=== PATIENT | female | born 1945 | race Caucasian/White ===

== ENCOUNTER 2020-09-10 17:57 | Emergency (ER) | payer MEDICARE, BC ==
--- NOTE | 2020-09-10 18:45 | XRAY Report ---
PROCEDURE: Foot 3 View LT INDICATIONS: Trauma TECHNIQUE: 3 views of the foot were acquired. COMPARISON: None FINDINGS: Bones: No fractures or dislocations. No suspicious bony lesions. Joint space narrowing and periart icular osteophyte formation at the first metatarsophalangeal joint, indicating osteoarthritis. Periar ticular osteophyte formation at the interphalangeal joints of the digits. Soft tissues: No tibiotalar joint effusion. Achilles tendon appears normal. IMPRESSION: Osteoarthritis. No acute fracture. No osseous lesion. If symptoms and/or clinical suspicion for patho logy continue, further assessment with repeat plain films, or advanced imaging (e.g., CT, MRI, or bon e scan) is recommended for further assessment. Reviewed by: Argentina Jessica MD on 09/10/2020 6:44 PM PDT Approved by: Argentina Jessica MD on 09/10/2020 6:44 PM PDT Station ID: [id number]
[2020-09-10 19:11] VITALS: BP 161/78
--- NOTE | 2020-09-10 19:14 | ED Physician Documentation ---
PD HPI LOWER EXT INJURY - Stated complaint Stated Complaint: LEFT TOE INJURY - Chief complaint Chief Complaint: Ext Problem - History obtained from History obtained from: Patient - Additional information Additional information: Patient comes emergency department chief complaint of left fourth toe injury. She states she was walking and hit her toe on the leg of a table. She states the toes seem to be sticking out in the wrong direction, so she was told by her she should come in and get checked out. She states that looks a little better now, though it is a little bit bruised and swollen. No other injuries or complaints Review of Systems Ten Systems: 10 systems reviewed and negative Constitutional: reports: Reviewed and negative Eyes: reports: Reviewed and negative Ears: reports: Reviewed and negative Nose: reports: Reviewed and negative Throat: reports: Reviewed and negative Cardiac: reports: Reviewed and negative Respiratory: reports: Reviewed and negative GI: reports: Reviewed and negative : reports: Reviewed and negative Skin: reports: Reviewed and negative Musculoskeletal: reports: Extremity pain, Extremity swelling Neurologic: reports: Reviewed and negative Psychiatric: reports: Reviewed and negative Endocrine: reports: Reviewed and negative Immunocompromised: reports: Reviewed and negative PD PAST MEDICAL HISTORY - Allergies Allergies/Adverse Reactions: Allergies Allergy/AdvReac Type Severity Reaction Status Date / Time amoxicillin Allergy Hives Verified 09/10/20 18:06 Sulfa (Sulfonamide Allergy Hives Verified 09/10/20 18:06 Antibiotics) PD ED PE NORMAL - Vitals Vital signs reviewed: Yes - General General: Alert and oriented X 3, No acute distress - HEENT HEENT: Atraumatic, PERRL, EOMI, Moist mucous membranes - Neck Neck: Supple, no meningeal sign - Cardiac Cardiac: Strong equal pulses - Respiratory Respiratory: No respiratory distress - Derm Derm: Warm and dry, No rash, Other (Contusion and mild edema of left fourth toe. No skin breakage) - Extremities Extremities: No deformity, Other (Tenderness palpation, mild, of left fourth toe. Mild edema. No deformity.) - Neuro Neuro: Alert and oriented X 3 - Psych Psych: Normal mood, Normal affect Results - Vitals Vitals: Vital Signs - 24 hr 09/10/20 09/10/20 18:06 19:11 Temperature 36.5 C 36.8 C Heart Rate 79 90 Respiratory 16 19 Rate Blood Pressure 170/80 H 161/78 H O2 Saturation 98 96 Oxygen O2 Source Room air - Rads (name of study) L foot XR Radiology: Final report received, EMP read indepedently, See rad report (neg) PD MEDICAL DECISION MAKING - ED course Complexity details: reviewed results, re-evaluated patient, considered differential, d/w patient ED course: Patient was worked up with x-ray of her left foot, which was unremarkable. I discussed with patient that she has not broken her toe. We have discussed symptomatic management at home, and the usual indications for follow-up and return. Departure - Departure Disposition: 01 Home, Self Care Clinical Impression: Toe contusion Qualifiers: Encounter type: initial encounter Toe: lesser toe Damage to nail status: without damage Laterality: left Qualified Code(s): S90.122A - Contusion of left lesser toe(s) without damage to nail, initial encounter Condition: Stable Instructions: ED Contusion Lower Ext Discharge Date/Time: 09/10/20 19:19
== END 2020-09-10 19:19 | disposition home or self-care (01) ==
LOC: ED 17:57
DX: S90.122A Contusion of left lesser toe(s) without damage to nail, initial encounter (principal); W22.03XA Walked into furniture, initial encounter; Y93.01 Activity, walking, marching and hiking; M19.072 Primary osteoarthritis, left ankle and foot
CPT/HCPCS: 99282; 99283